=== PATIENT | female | born 1995 | race Caucasian/White ===

== ENCOUNTER 2016-12-29 09:45 | Outpatient (CLI) | payer MEDICAID | END 2016-12-29 09:46 | disposition home or self-care (01) | LOC: LAB.R 09:45 | PROVIDERS: ATTEND Physician Assistant | DX: N39.0 Urinary tract infection, site not specified (principal) | CPT/HCPCS: 87086 ==

== ENCOUNTER 2017-01-27 11:49 | Outpatient (CLI) | payer MEDICAID ==
[2017-01-27 12:16] LABS: BASOPHILS # (AUTO) 0.1 10^3/uL (0.0-0.1); BASOPHILS % (AUTO) 0.7 %; EOSINOPHILS % (AUTO) 0.4 %; HCT - HEMATOCRIT 40.2 % (37.0-47.0); HGB - HEMOGLOBIN 13.7 g/dL (12.0-16.0); LYMPHOCYTES # (AUTO) 1.8 10^3/uL (1.5-3.5); LYMPHOCYTES % (AUTO) 19.5 %; MEAN CORPUSCULAR HEMOGLOBIN 29.8 pg (27.0-31.0); MEAN CORPUSCULAR HGB CONC 34.1 g/dL (32.0-36.0); MEAN CORPUSCULAR VOLUME 87.5 fL (81.0-99.0); MEAN PLATELET VOLUME 8.5 fL (7.9-10.8); MONOCYTES # (AUTO) 0.6 10^3/uL (0.0-1.0); MONOCYTES % (AUTO) 6.8 %; NEUTROPHILS # (AUTO) 6.5 10^3/uL (1.5-6.6); NEUTROPHILS % (AUTO) 72.6 %; RED BLOOD COUNT 4.59 10^6/uL (4.20-5.40); RED CELL DISTRIBUTION WIDTH 14.2 % (12.0-15.0)
[2017-01-27 12:18] LABS: BILIRUBIN,URINE NEGATIVE (NEGATIVE)
[2017-01-27 12:27] LABS: WBC,URINE 0-3 /HPF (0-5)
[2017-01-31 18:12] LABS: TEST RESULT REPORT (())
== END 2017-01-27 11:50 | disposition home or self-care (01) ==
LOC: LAB 11:49
PROVIDERS: ATTEND Registered Nurse
DX: Z36 Encounter for antenatal screening of mother (principal)
CPT/HCPCS: 36415; 81001; 81599; 85025; 86762; 86780; 86850; 86900; 86901; 87340; 87389

== ENCOUNTER → 2017-02-24 | Outpatient (CLI) | payer MEDICAID | LOC: LAB.R 08:00 | PROVIDERS: ATTEND Registered Nurse | DX: A56.00 Chlamydial infection of lower genitourinary tract, unspecified (principal) | CPT/HCPCS: 87491; 87591 ==

== ENCOUNTER 2017-04-07 12:33 | Outpatient (CLI) | payer MEDICAID ==
--- NOTE | 2017-04-10 15:29 | DEXA Report ---
OB ULTRASOUND: 04/07/2017 CLINICAL INDICATION: anatomy. TECHNIQUE: Real-time scanning was performed with treasury representative static images obtained. LAST MENSTRUAL PERIOD 10/26/2016 Clinical Age 23 weeks 2 days US Age 20 weeks 6 days EFW Hadlock 392 EFW% Hadlock less than 3% Heart Rate 146 bpm EDC 08/02/2017 US EDC 08/19/2017 BPD Hadlock 20 weeks 4 days; Mean mm 48 HC Hadlock 20 weeks 6 days; Mean mm 185 AC Hadlock 21 weeks 2 days; Mean mm 162 FL Hadlock 20 weeks 5 days; Mean mm 34 Presentation moving Placental Location anterior Cervical Length -- Amniotic Fluid 15.4 cm FINDINGS: There is a single viable intrauterine gestation, in variable position. heart rate is 146 BPM. The placenta is anterior, without evidence of previa. Amniotic fluid volume is subjectively normal. By size, the fetus measures 20 weeks 6 days (23 weeks 2 days by LMP, 27 weeks 4 days by DAMIEN provided on order). The following anatomic structures were visualized and appear normal: The intracranial contents, including the ventricles and posterior fossa; the lips and orbits; the spine; the heart, including 4-chamber view and outflow tracts, and diaphragm; the abdominal contents, including the stomach, the bilateral kidneys, and urinary bladder, as well as a normal 3- vessel cord insertion; 4 limbs. No free fluid or adnexal lesion is appreciated. IMPRESSION: SINGLE VIABLE INTRAUTERINE GESTATION, MEASURING SIGNIFICANTLY SMALLER THAN EXPECTED BY LMP DATING OR DATING PROVIDED ON THE ORDER. BY SIZE, THE FETUS MEASURES 20 WEEKS 6 DAYS, WITH AN ESTIMATED DUE DATE OF 08/19/2017. NORMAL ANATOMIC SURVEY. MTDD
== END 2017-04-07 12:34 | disposition home or self-care (01) ==
LOC: DI 12:33
PROVIDERS: ATTEND Registered Nurse
DX: Z34.82 Encounter for supervision of other normal pregnancy, second trimester (principal)
CPT/HCPCS: 76811

== ENCOUNTER 2017-05-19 12:18 | Outpatient (CLI) | payer MEDICAID ==
[2017-05-19 13:45] LABS: HGB - HEMOGLOBIN 11.4 g/dL (12.0-16.0); MEAN CORPUSCULAR HGB CONC 35.3 g/dL (32.0-36.0); MEAN CORPUSCULAR VOLUME 90.9 fL (81.0-99.0); MEAN PLATELET VOLUME 8.3 fL (7.9-10.8); RED BLOOD COUNT 3.54 10^6/uL (4.20-5.40); RED CELL DISTRIBUTION WIDTH 12.8 % (12.0-15.0); WHITE BLOOD COUNT 8.8 x10^3/uL (4.8-10.8)
== END 2017-05-19 12:19 | disposition home or self-care (01) ==
LOC: LAB 12:18
PROVIDERS: ATTEND Registered Nurse
DX: Z34.82 Encounter for supervision of other normal pregnancy, second trimester (principal)
CPT/HCPCS: 36415; 82950; 86850

== ENCOUNTER 2017-05-26 08:05 | Outpatient (CLI) | payer MEDICAID | END 2017-05-26 08:06 | disposition home or self-care (01) | LOC: LAB 08:05 | PROVIDERS: ATTEND Nurse Practitioner Obstetrics & Gynecology | DX: R73.02 Impaired glucose tolerance (oral) (principal) | CPT/HCPCS: 36415; 82951 ==

== ENCOUNTER 2017-07-19 08:00 | Outpatient (CLI) | payer MEDICAID | END 2017-07-19 08:01 | disposition home or self-care (01) | LOC: LAB.R 08:00 | PROVIDERS: ATTEND Nurse Practitioner Obstetrics & Gynecology | DX: Z36.85 Encounter for antenatal screening for Streptococcus B (principal); Z11.3 Encounter for screening for infections with a predominantly sexual mode of transmission | CPT/HCPCS: 87081; 87491; 87591 ==

== ENCOUNTER 2017-08-11 11:38 | Outpatient (CLI) | payer MEDICAID ==
[2017-08-11 11:55] VITALS: BP 128/88
== END 2017-08-11 16:01 | disposition home or self-care (01) ==
LOC: WFO 11:38 → FBP 11:40 → WFO 16:01
PROVIDERS: ATTEND Nurse Practitioner Obstetrics & Gynecology
DX: O47.1 False labor at or after 37 completed weeks of gestation (principal); O36.8130 Decreased fetal movements, third trimester, not applicable or unspecified; Z3A.38 38 weeks gestation of pregnancy
CPT/HCPCS: 99212; 99213

== ENCOUNTER 2017-08-11 20:33 | Outpatient (CLI) | payer MEDICAID ==
[2017-08-11 21:02] VITALS: BP 125/85
== END 2017-08-11 21:30 | disposition home or self-care (01) ==
LOC: WFO 20:33 → FBP 20:34 → WFO 21:30
PROVIDERS: ATTEND Nurse Practitioner Obstetrics & Gynecology
DX: O36.8130 Decreased fetal movements, third trimester, not applicable or unspecified (principal); Z3A.38 38 weeks gestation of pregnancy
CPT/HCPCS: 99212

== ENCOUNTER 2017-08-15 20:51 | Outpatient (CLI) | payer MEDICAID ==
[2017-08-15 21:06] VITALS: BP 127/80
== END 2017-08-15 22:51 | disposition home or self-care (01) ==
LOC: WFO 20:51 → FBP 20:52 → WFO 22:51
PROVIDERS: ATTEND Nurse Practitioner Obstetrics & Gynecology
DX: O47.1 False labor at or after 37 completed weeks of gestation (principal); Z3A.39 39 weeks gestation of pregnancy
CPT/HCPCS: 99213

== ENCOUNTER 2017-08-18 13:19 | Inpatient (IN) | payer MEDICAID ==
[2017-08-18] MEDS ORDERED: SODIUM CHLORIDE FLUSH 0.9% 10 ML SYRINGE IVP PRN ×2 (13:58→15:11)
[2017-08-18] MEDS ORDERED: ceFAZolin 2 GM/50 ML 2 GM/50 ML BAG IV SCH (13:58)
[2017-08-18] MEDS ORDERED: LACTATED RINGERS 1,000 ML IV SCH ×2 (14:00→16:00)
[2017-08-18] MEDS ORDERED: CITRIC ACID/SODIUM CITRATE 15 ML UDC PO ONE (14:02)
[2017-08-18] MEDS ORDERED: LACTATED RINGERS 2,000 ML IV ONE (14:03)
[2017-08-18] MEDS ORDERED: SODIUM CHLORIDE FLUSH 0.9% 10 ML SYRINGE ONE (14:03)
[2017-08-18] MEDS ORDERED: LACTATED RINGERS 1,000 ML IV ONE ×2 (14:10→14:45)
[2017-08-18 14:20] LABS: BASOPHILS % (AUTO) 0.4 %; EOSINOPHILS % (AUTO) 0.3 %; HGB - HEMOGLOBIN 11.5 g/dL (12.0-16.0); LYMPHOCYTES # (AUTO) 1.9 10^3/uL (1.5-3.5); LYMPHOCYTES % (AUTO) 25.2 %; MEAN CORPUSCULAR HEMOGLOBIN 28.5 pg (27.0-31.0); MEAN CORPUSCULAR HGB CONC 33.7 g/dL (32.0-36.0); MEAN CORPUSCULAR VOLUME 84.4 fL (81.0-99.0); MEAN PLATELET VOLUME 10.4 fL (7.9-10.8); MONOCYTES # (AUTO) 0.5 10^3/uL (0.0-1.0); MONOCYTES % (AUTO) 7.2 %; NEUTROPHILS % (AUTO) 66.9 %; PLT - PLATELET COUNT 182 10^3/uL (130-450); RED BLOOD COUNT 4.03 10^6/uL (4.20-5.40); RED CELL DISTRIBUTION WIDTH 14.4 % (12.0-15.0); WHITE BLOOD COUNT 7.5 x10^3/uL (4.8-10.8)
[2017-08-18 14:30] LABS: RUPTURE OF MEMBRANES PLUS NEGATIVE (NEGATIVE)
[2017-08-18] MEDS ORDERED: KETOROLAC 30 MG/ML VIAL IVP ONE (14:40)
[2017-08-18] MEDS ORDERED: ceFAZolin 1 GM VIAL IV ONE (14:40)
[2017-08-18] MEDS ORDERED: ROCURONIUM 50 MG/5 ML VIAL IVP ONE (14:40)
[2017-08-18] MEDS ORDERED: PROPOFOL 200 MG/20 ML VIAL IVP ONE (14:40)
[2017-08-18] MEDS ORDERED: fentaNYL 250 MCG/5 ML VIAL IVP ONE (14:40)
[2017-08-18] MEDS ORDERED: ONDANSETRON 4 MG/2 ML VIAL IVP ONE (14:40)
[2017-08-18] MEDS ORDERED: OXYTOCIN 10 UNIT/ML VIAL IV ONE (14:40)
[2017-08-18] MEDS ORDERED: ACETAMINOPHEN 1,000 MG/100 ML 100 ML IV ONE (14:40)
[2017-08-18] MEDS ORDERED: SUCCINYLCHOLINE 200 MG/10 ML VIAL IVP ONE (14:40)
[2017-08-18] MEDS ORDERED: BUPIVACAINE 0.5%-EPI 1:200000 PF 30 ML VIAL SUBQ ONE (14:45)
[2017-08-18] MEDS ORDERED: HYDROCORTISONE/PRAMOXINE 10 GM PR PRN (15:11)
[2017-08-18] MEDS ORDERED: ZOLPIDEM 5 MG TABLET PO PRN (15:11)
[2017-08-18] MEDS ORDERED: WITCH HAZEL/GLYCERIN 1 EACH MED..PAD TOP PRN (15:11)
[2017-08-18] MEDS ORDERED: diphenhydrAMINE 25 MG CAPSULE PO PRN (15:11)
[2017-08-18] MEDS ORDERED: OXYTOCIN/SODIUM CHLORIDE 250 ML IV ONE (15:11)
[2017-08-18] MEDS ORDERED: ONDANSETRON 4 MG/2 ML VIAL IVP PRN (15:11)
--- NOTE | 2017-08-18 15:23 | OPERATIVE REPORT ---
Operative Report - General Admit Date: 08/18/17 Pre-Op Diagnosis: bradycardia; 39 week gestation Procedure Performed: Emergent lower segment transverse section Post Op Diagnosis: Same as above - Procedure Note Primary Surgeon: Cyrus Herbert MD, FACOG Secondary Surgeon: Maggie Dorantes, certified nurse machine hamper maker Anesthesia Provider: Chaparro Garza certified nurse general repair mechanic Anesthesia Technique: General ET tube Pathology: Placenta IV Fluids (mL): 1,000 Estimated Blood Loss (mL): 500 Urine Output (mL): 250 Drain/Tube Type: Other (Calderon catheter) Complications: None - Other Other Information/Narrative: Incision time 1419 delivery time 1421. Living female weight 8 pounds 7.1 ounces (3831 g) scoring Apgars of 9/9. Arterial cord pH 7.308 base excess - 3.8 venous cord pH 7.315 base excess -1.9.
[2017-08-18] MEDS ORDERED: SODIUM CHLORIDE FLUSH 0.9% 10 ML SYRINGE IVP SCH ×2 (17:00)
--- NOTE | 2017-08-18 17:28 | HISTORY & PHYSICAL EXAMINATION ---
Admit History - Instructions [place]/Slash: -Left hand click circles element as positive or present. -Right hand click slashes element as negative or not present. - Visit Reason Visit Reason: Membranes rupture - Care: positive: [facility] Risk/History: positive: None Complications This : positive: None Smoking Status: Never smoker - Mother's Labs Mother's Blood Type: positive: O Mother's RH: positive: Positive GBS: positive: Group B Step Negative Rubella Status: positive: Equivocal - Other Maternal History Other Maternal History: HPI: This 21yo at 39.5wks gestation by 10.5 wk U/S who presents for rule out rupture of membranes. She states phoned labor and delivery and states she noticed a gush of fluid that soaked her underwear while she was sitting down 2 days ago. She reports continued light leakage of fluid since this episode. Reports positive movement. Nitrizine negative, ROM+ collected. Patient was placed on monitor by labor and delivery mgr. She then immediately notified myself in the office of abnormal heart rate. heart rate tracing visualized on the office. Baseline appeared to be 150bpm with decrease to 50bpm for 30-60 seconds repeatedly. I immediately notified Dr. Herbert, attending physician of the abnormal hear tones. Dr. Herbert and I were in agreement that the distress was a significant possibility. Risks vs benefits of continued monitoring vs immediate delivery were reviewed with the patient and the decision was made to proceed to delivery. Care was then handed off to Dr. Herbert. Dating Criteria: 1.) LMP 11/25/2016 2.) First ultrasound 01/27/2017 @ 10.5wks - radiates from LMP 3.) First exam 01/27/2017 @ 10.5 weeks agrees with initial ultrasound 4.) Serial exams @ 14-39 weeks agree with initial ultrasound OB History: G1: Current. +Chlamydia, MONTY neg. 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 Last pap 01/2017 WNL. No significant past medical or surgical hx Family Hx: Asthma -father Meds: PNV, Zoloft Allergies: NKDA labs: Blood type O, Rh pos, Antibody negative Hgb 13.7, Hct 40.2, PLT 182 Rubella equivocal HIV: nonreactive GC neg, CT pos Hep B nonreactive FTA-ABS non-reactive Tdap 06/07/2017 28 week labs: Hgb 11.4, antibody neg, 1 hour GTT 166 3 hour GTT 88, 176, 159, 133 GBS neg Ultrasounds: 04/14/2017 FAS WNL, anterior placenta, no previa, CYNDI WNL Meds/Allgy - Allergies Allergies/Adverse Reactions: Allergies Allergy/AdvReac Type Severity Reaction Status Date / Time No Known Drug Allergies Allergy Verified 08/18/17 15:26 Physical - Abdominal Exam Vital Signs: Temp Pulse Resp BP Pulse Ox 37 C 70 18 122/90 H 98 08/18/17 16:09 08/18/17 17:01 08/18/17 17:01 08/18/17 17:01 08/18/17 17:01
[2017-08-18] MEDS: DOCUSATE SODIUM 100 MG CAPSULE PO SCH (20:41)
[2017-08-18] MEDS: KETOROLAC 30 MG/ML VIAL IV SCH (20:41)
[2017-08-19] MEDS: KETOROLAC 30 MG/ML VIAL IV SCH ×3 (02:32→13:41)
[2017-08-19] MEDS: oxyCOD/ACETAMIN 5 MG/325 MG TABLET PO PRN ×5 (02:32→21:34)
--- NOTE | 2017-08-19 08:09 | PROVIDER PROGRESS NOTE ---
Subjective - General Admit Date: 08/18/17 Procedure Date: 08/18/17 Post Op Days: 1 Procedure Performed: Emergent primary lower segment transverse section - Review of Systems Wound/Incisions: positive: Healing well (No evidence of seroma or infection, wound sealed with Dermabond) Drain Type: Calderon discontinued General: positive: No symptoms, Other (Pain well controlled) HEENT: positive: No symptoms Pulmonary: positive: No symptoms Cardiovascular: positive: No symptoms Gastrointestinal: positive: No symptoms Genitourinary: positive: No symptoms, Other (Scant non-foul lochia rubra) Musculoskeletal: positive: No symptoms Skin: positive: No symptoms Neurological: Psychiatric: positive: No symptoms (Patient in good spirits smiling; father present and tending to ) Objective - Patient Data Vital Signs: Vital Signs x48h Temp Pulse Resp BP Pulse Ox 08/19/17 04:10 98.6 F 83 16 128/81 H 96 Weight: Weight 08/17/17 08/18/17 08/19/17 23:59 23:59 23:59 Weight (kg) 73.93 kg Intake & Output: Intake and Output Totals x24h 08/17/17 08/18/17 08/19/17 23:59 23:59 23:59 Intake Total 960 400 Output Total 1170 500 Balance -210 -100 - Lab Results Lab Results: 08/18/17 14:08 Other Lab Results: Lab Results x24hrs 08/18/17 08/18/17 Range/Units 14:08 13:38 WBC 7.5 (4.8-10.8) x10^3/uL RBC 4.03 L (4.20-5.40) 10^6/uL Hgb 11.5 L (12.0-16.0) g/dL Hct 34.0 L (37.0-47.0) % MCV 84.4 (81.0-99.0) fL MCH 28.5 (27.0-31.0) pg MCHC 33.7 (32.0-36.0) g/dL RDW 14.4 (12.0-15.0) % Plt Count 182 (130-450) 10^3/uL MPV 10.4 (7.9-10.8) fL Neut # 5.0 (1.5-6.6) 10^3/uL Lymph # 1.9 (1.5-3.5) 10^3/uL Davie # 0.5 (0.0-1.0) 10^3/uL Eos # 0.0 (0.0-0.7) 10^3/uL Baso # 0.0 (0.0-0.1) 10^3/uL Absolute Nucleated RBC 0.00 x10^3/uL Nucleated RBC % 0.0 /100WBC Membranes Rupture NEGATIVE (NEGATIVE) - Current Medications Current Medications: Current Medications Generic Name Dose Route Start Last Admin Trade Name Freq PRN Reason Stop Dose Admin Docusate Sodium 100 mg 08/18/17 21:00 08/18/17 20:41 Colace 100mg Capsule PO 100 mg BID WEI Administration Ketorolac Tromethamine 30 mg 08/18/17 16:00 08/19/17 02:32 Toradol Inj IV 08/19/17 10:01 30 mg Q6H WEI Administration Oxycodone/Acetaminophen 1 tab 08/18/17 15:11 08/19/17 02:32 Percocet 5 Mg/325 Mg PO 1 tab Q4HR PRN Administration PAIN Physical Exam - Physical Exam General: positive: No acute distress HEENT: positive: EOMI, Moist mucous membranes Neck: positive: Supple w/out meningeal sx Cardiac: positive: Regular Rate, Murmur Present (Flow murmur typical of ) Resipratory: positive: Clear to ausultation cecelia, Other (Patient demonstrated the use of incentive spirometry) Abdomen: positive: Normal Bowel sounds, Tender to palpation (Lower quadrants and incisional area appropriately tender immediately post surgery), Other ( Wound is dry intact without any redness or seroma.) Female : positive: Enlarged uterus (17 week size firm nontender) Extremities: positive: Normal ROM, No pedal edema, Non tender Skin: positive: Warm and dry Neurologic: positive: Alert and Oriented X 3, Normal motor/no weakness, Normal Sensation, Normal Speech Assessment/Plan - Assessment/Plan Assessment: Patient is recovering from section as expected. She is hemodynamically stable, advancing diet, breast-feeding without difficulty and regaining urinary function. No signs of concern. Await morning CBC results Plan: Plan: * DC Calderon catheter, * Hep-Lock IV fluids, * encourage ambulation, * encourage shower, * continue breast-feeding instruction
[2017-08-19] MEDS: DOCUSATE SODIUM 100 MG CAPSULE PO SCH ×2 (09:02→21:34)
[2017-08-19 09:07] LABS: BASOPHILS % (AUTO) 0.3 %; EOSINOPHILS % (AUTO) 0.1 %; HGB - HEMOGLOBIN 9.8 g/dL (12.0-16.0); LYMPHOCYTES # (AUTO) 1.3 10^3/uL (1.5-3.5); LYMPHOCYTES % (AUTO) 10.5 %; MEAN CORPUSCULAR HEMOGLOBIN 28.4 pg (27.0-31.0); MEAN CORPUSCULAR HGB CONC 33.8 g/dL (32.0-36.0); MEAN CORPUSCULAR VOLUME 83.9 fL (81.0-99.0); MEAN PLATELET VOLUME 9.4 fL (7.9-10.8); MONOCYTES % (AUTO) 7.7 %; NEUTROPHILS # (AUTO) 10.2 10^3/uL (1.5-6.6); NEUTROPHILS % (AUTO) 81.4 %; PLT - PLATELET COUNT 157 10^3/uL (130-450); RED BLOOD COUNT 3.46 10^6/uL (4.20-5.40); RED CELL DISTRIBUTION WIDTH 14.8 % (12.0-15.0); WHITE BLOOD COUNT 12.6 x10^3/uL (4.8-10.8)
[2017-08-20] MEDS: oxyCOD/ACETAMIN 5 MG/325 MG TABLET PO PRN ×3 (01:20→15:16)
--- NOTE | 2017-08-20 07:36 | PROVIDER PROGRESS NOTE ---
Subjective - General Admit Date: 08/18/17 Procedure Date: 08/18/17 Post Op Days: 2 Procedure Performed: Emergent primary lower segment transverse section - Review of Systems Wound/Incisions: positive: Healing well (No evidence of seroma or infection, wound sealed with Dermabond) Drain Type: Calderon discontinued General: positive: No symptoms, Other (Pain well controlled) HEENT: positive: No symptoms Pulmonary: positive: No symptoms Cardiovascular: positive: No symptoms Gastrointestinal: positive: No symptoms, Other (No BM; + Flatus) Genitourinary: positive: No symptoms, Other (Scant non-foul lochia rubra) Musculoskeletal: positive: No symptoms Skin: positive: No symptoms Psychiatric: positive: No symptoms (Patient in good spirits smiling; father present and tending to ) Objective - Patient Data Vital Signs: Vital Signs x48h Temp Pulse Resp BP Pulse Ox 08/20/17 03:30 98.2 F 77 16 138/90 H 96 Weight: Weight 08/18/17 08/19/17 08/20/17 23:59 23:59 23:59 Weight (kg) 73.93 kg Intake & Output: Intake and Output Totals x24h 08/18/17 08/19/17 08/20/17 23:59 23:59 23:59 Intake Total 960 1500 Output Total 1170 1600 Balance -210 -100 - Lab Results Lab Results: 08/19/17 08:59 Other Lab Results: Lab Results x24hrs 08/19/17 Range/Units 08:59 WBC 12.6 H (4.8-10.8) x10^3/uL RBC 3.46 L (4.20-5.40) 10^6/uL Hgb 9.8 L (12.0-16.0) g/dL Hct 29.0 L (37.0-47.0) % MCV 83.9 (81.0-99.0) fL MCH 28.4 (27.0-31.0) pg MCHC 33.8 (32.0-36.0) g/dL RDW 14.8 (12.0-15.0) % Plt Count 157 (130-450) 10^3/uL MPV 9.4 (7.9-10.8) fL Neut # 10.2 H (1.5-6.6) 10^3/uL Lymph # 1.3 L (1.5-3.5) 10^3/uL [place] # 1.0 (0.0-1.0) 10^3/uL Eos # 0.0 (0.0-0.7) 10^3/uL Baso # 0.0 (0.0-0.1) 10^3/uL Absolute Nucleated RBC 0.00 x10^3/uL Nucleated RBC % 0.0 /100WBC - Current Medications Current Medications: Current Medications Generic Name Dose Route Start Last Admin Trade Name Freq PRN Reason Stop Dose Admin Docusate Sodium 100 mg 08/18/17 21:00 08/19/17 21:34 Colace 100mg Capsule PO 100 mg BID WEI Administration Oxycodone/Acetaminophen 1 tab 08/18/17 15:11 08/20/17 01:20 Percocet 5 Mg/325 Mg PO 1 tab Q4HR PRN Administration PAIN Physical Exam - Physical Exam General: positive: No acute distress HEENT: positive: Moist mucous membranes Neck: positive: Supple w/out meningeal sx Cardiac: positive: Regular Rate, Regular Rhythm Resipratory: positive: Clear to ausultation cecelia Abdomen: positive: Normal Bowel sounds Female : positive: Enlarged uterus (17 wk; Nontender; Firm; Scant Lochia Nonfoul) Extremities: positive: No pedal edema Skin: positive: Warm and dry Neurologic: positive: Alert and Oriented X 3 Assess/Plan - Additional Planning Condition/Complexity: Stable My Orders: My Active Orders 08/20/17 08:00 Ibuprofen [Motrin] 600 mg PO Q6HR 08/20/17 09:00 Polyethylene Glycol 3350 [Miralax] 17 gm PO DAILY Assessment/Plan - Assessment/Plan Assessment: Doing Well Plan: PLAN * Laxative * Ibuprophen * Supportive Care
[2017-08-20] MEDS: DOCUSATE SODIUM 100 MG CAPSULE PO SCH ×2 (08:31→23:15)
[2017-08-20] MEDS: IBUPROFEN 600 MG TABLET PO SCH ×3 (08:31→23:15)
[2017-08-20] MEDS ORDERED: MEASLES,MUMPS & RUBELLA VACC 0.5 ML VIAL SUBQ ONE (08:56)
[2017-08-20] MEDS ORDERED: POLYETHYLENE GLYCOL 3350 17 GM PACKET PO SCH (09:00)
[2017-08-21] MEDS: IBUPROFEN 600 MG TABLET PO SCH (05:10)
[2017-08-21 07:54] VITALS: BP 137/81
--- NOTE | 2017-08-21 08:05 | Discharge Plan ---
Discharge Plan Disposition: 01 Home, Self Care Diet: Regular (Recommend high protein high iron diet containing red meats, spinach and sufficient fiber) Activity Restrictions: Activity as Tolerated Shower Restrictions: No Driving Restrictions: No Weight Bearing: Full Weight No Smoking: If you smoke, Please STOP! Call for help. Follow-up with: Cyrus Herbert MD [Provider Admit Priv/Credential] -
--- NOTE | 2017-08-21 08:39 | DISCHARGE SUMMARY ---
Physician: Cyrus Herbert MD DATE OF ADMISSION: 08/18/2017 DATE OF DISCHARGE: 08/21/2017 DIAGNOSES 1. A 39-week 5-day gestation. 2. Bouts of bradycardia to the 50s. 3. Prior history of irregular heart tones evaluated by Maternal Medicine, reported resolved. Patient is a 21-year-old primigravida at 39 weeks 5 days, dated by a 10-week ultrasound, who presented at Labor and Delivery to rule out ruptured membranes. During initial evaluation, heart tones were in the 50s intermittently, sometimes for 60 seconds or longer, with a baseline of 150. After initial evaluation, there was no evidence of abruption, but the concerning bouts of bradycardia were confirmed (reference Maggie MACKW H and P). I discussed the situation with the patient explaining the possibility of compromise either due to cord factors, placental factors or even prolonged and persistent heart block. It was recommended that section be accomplished. The risks were reviewed inclusive of blood loss, transfusion, infection, damage to maternal organs, and the need for repetitive sections. After a brief discussion, patient agreed with a section, and we brought her to the OR emergently. HOSPITAL COURSE: Patient was brought to the OR and placed on the table while preparations were made in a coordinated fashion. Anesthesia arrived shortly thereafter. She then underwent general anesthesia with intubation uneventfully. Incision time was 1419 with baby out at 1421. section produced a living female infant weighing 8 pounds 7.1 ounces ( 3831 grams) and scoring Apgars of 9/9. Arterial cord pH was 7.308 with a base excess of -3.8. Cord pH was 7.31 with a base excess of 1.9. Total blood loss was 500 or less. Patient went to the recovery room in stable condition. Post recovery, patient rapidly advanced to full diet and activity. She breastfed without difficulty. Admission hemoglobin was 11.5 and postop hemoglobin was 9.8. Patient required supportive care until postop day #3, at which time she was ready for discharge. Wound instructions and warning and call-back signs were reviewed. DISCHARGE MEDICATIONS 1. Motrin 600 q.6 hours scheduled for 1 week and then p.r.n. 2. Percocet 5/325 one tablet q.4 hours p.r.n. breakthrough pain. 3. Colace 250 b.i.d. for 30 days. 4. vitamins and iron. 5. Ferrous sulfate 325 p.o. b.i.d. FOLLOWUP: Patient will have a customary wound check in 2 weeks. At that time, she will also be evaluated by midwifery and resume care at the clinic. TD: 08/21/2017 08:38 DANYEL
[2017-08-21] MEDS: oxyCOD/ACETAMIN 5 MG/325 MG TABLET PO PRN (09:36)
[2017-08-21] MEDS: DOCUSATE SODIUM 100 MG CAPSULE PO SCH (09:36)
--- NOTE | 2017-08-21 09:57 | OPERATIVE REPORT ---
DATE OF SERVICE: 08/18/2017 Physician: Cyrus Herbert MD PREOPERATIVE DIAGNOSIS: bradycardia; 39-week gestation. POSTOPERATIVE DIAGNOSIS: bradycardia; 39-week gestation. PROCEDURE: Emergent lower segment transverse section. SURGEON: Cyrus Herbert MD, FACOG, FICS DSP ENGINEER: Maggie Dorantes, Certified Nurse Feather Shaper. ETCHER ELECTROLYTIC: Yoselin Garza, Certified Nurse Dispensing Audiologist. ANESTHESIA: General, ET tube placed. COMPLICATIONS: None. ESTIMATED BLOOD LOSS: 500. CRYSTALLOIDS: Approximately 1000. URINE OUTPUT: 250, clear. Calderon in place. FINDINGS: At 1418 hours, the section was begun. A living male infant was delivered at 1421 hours. The weighed 8 pounds 7.1 ounces and scored Apgars of 9/ 9.. Arterial cord pH equals 7.308 with base excess -3.8. There was no obvious trauma or congenital anomalies. There was clear amniotic fluid without any foul smell or meconium. Placenta was extracted intact with 3-vessel cord. There was no significant cord entanglement. There was no myometrial pathology, and the ovaries appeared to be normal. Tubes appeared to be open and fluffy. BACKGROUND: Maggie Dorantes was notified in the office of abnormal heart tracing by the OB nurse, Maria R. The tracing was brought up on the network, and there were repetitive decelerations into the 50s. There had been previous bouts of bradycardia earlier in , and patient had MFM consultation. The heart arrhythmia was spontaneously resolved. The mother had no history of cardiovascular disease. Due to the repetitive deep decelerations, some prolonged to 2 minutes, we reacted immediately. The OR was informed of possible section. Once at bedside , the tracing was confirmed and the situation explained to the patient. It was impossible to determine in the prerequisite short time limit if this was recurrent bouts of heart block, bradycardia due to a placental insufficiency, or cord accident. The multiple bouts of bradycardia raised the possibility of a compromising heart block, and decision was made to recommend section. The situation was explained to the mother and father, after which she consented. Consent form was signed. Patient was begun on IV fluids. Calderon was placed and Bicitra given. The charge nurse came to the OB suite to assist. I called the OR desk to ensure that Anesthesia had been notified and knew that this was an emergency. PROCEDURE Patient was brought to the OR #1 that had been set up by the OR crew. She was placed on the operating table. She was prepped and draped in the customary sterile fashion. Anesthesia arrived, was quickly briefed to the situation, and prepared for general anesthesia. Patient was uneventfully induced and intubated. The procedure began immediately, and the abdominal wall was uneventfully opened with a Pfannenstiel incision. A curvilinear lower segment hysterotomy was cut with a scalpel. There was clear fluid on entry into the amniotic cavity. The foot drill operator secured the vertex with his right hand and guided it through the hysterotomy wound. A Kiwi vacuum was then placed and pumped to the green zone. The head was then guided through the laparotomy wound. The shoulders were snug but delivered without difficulty or extension. The cord was doubly clamped, transected. The was handed to the waiting nursing team. Cord blood and cord gas samples were sent. Uterus was exteriorized. Using massage, the placenta was removed intact. All membranes were removed from the interior. The hysterotomy was closed in 2 layers, first an interlocking layer of 0 Vicryl, followed by an imbricating layer of 0 Vicryl. Abdominal cavity was lavaged with warm normal saline. We inspected all wound sites, and they were secure. The uterus was placed back into the abdominal cavity. Abdominal peritoneum was closed with a running stitch of 2-0 Vicryl. Rectus muscles were tacked back together in the midline with interrupted sutures of 0 Vicryl. Fascia was closed with a running stitch of 0 Vicryl. Subcutaneous space was closed with a running stitch of 2-0 Vicryl. Skin was closed with a running subcuticular stitch of 4-0 Monocryl and dressed with Dermabond. At the end of the case, all sponge, needle, and instrument counts were confirmed as correct. Patient was uneventfully awakened from general anesthesia and taken to the recovery room in good condition. TD: 08/18/2017 20:57 DANYEL
--- NOTE | 2017-08-21 14:03 | Labor Flowsheet ---
Labor Flowsheet Datetime Report Generated by CPN: 08/21/2017 14:02 Datetime: 08/20/2017 09:28 VITAL SIGNS NBP Sys/Enma/Mean (mmHg): 107 : 70 : 79 Pulse: 88 SpO2 (%): 99 COMMUNICATION LaborFlag: OB Triage
== END 2017-08-21 09:45 | disposition home or self-care (01) | DRG 766 ==
LOC: WFO 13:19 → FBP 13:20 → WFO 13:57 → FBP 13:58
PROVIDERS: ADMIT Nurse Practitioner Obstetrics & Gynecology; ATTEND Obstetrics & Gynecology
PROC: 10D00Z1 Extraction of Products of Conception, Low, Open Approach (ICD-10-PCS; principal; 2017-08-18 14:15)
DX: O76 Abnormality in fetal heart rate and rhythm complicating labor and delivery (principal); Z3A.39 39 weeks gestation of pregnancy; Z37.0 Single live birth; Z86.19 Personal history of other infectious and parasitic diseases
CPT/HCPCS: 36415; 82570; 82803; 84112; 84156; 85025; 99213

== ENCOUNTER 2018-07-21 23:12 | Emergency (ER) | payer MEDICAID, OTHER ==
[2018-07-22] MEDS ORDERED: SULFAM/TRIM 800/160 Prepack 2 PO ONE (01:32)
--- NOTE | 2018-07-22 01:35 | ED Physician Documentation ---
PD HPI SKIN - Stated complaint Stated Complaint: RT LEG RASH - Chief complaint Chief Complaint: Wound - History obtained from History obtained from: Patient, Family - History of Present Illness Timing - onset: Yesterday Timing - duration: Days (2) Timing - details: Gradual onset, Still present Location: LLE Quality / character: Painful, Discolored, Raised, Vesicular, Swelling. No: Draining Associated symptoms: No: Fever, Myalgias Similar symptoms before: Has not had sx before Recently seen: Not recently seen - Additional information Additional information: 22-year-old female has developed a small blister on the inside of her left thigh and this is now had some erythema that has spread overnight. Review of Systems Constitutional: denies: Fever, Chills, Myalgias Respiratory: denies: Cough GI: denies: Vomiting Skin: reports: Bite / sting Musculoskeletal: reports: Extremity pain, Extremity swelling, Pain with weight bearing Neurologic: denies: Generalized weakness, Focal weakness, Numbness PD PAST MEDICAL HISTORY - Past Medical History Past Medical History: No - Past Surgical History Past Surgical History: Yes /ECMO SPECIALIST: section - Present Medications Home Medications: Ambulatory Orders Medication Instructions Recorded Confirmed Sulfamethoxazole/Trimethoprim 1 each PO BID #14 tablet 07/22/18 [Sulfamethoxazole-Tmp Ds Tablet] - Allergies Allergies/Adverse Reactions: Allergies Allergy/AdvReac Type Severity Reaction Status Date / Time No Known Drug Allergies Allergy Verified 07/21/18 23:20 - Social History Does the pt smoke?: No Smoking Status: Never smoker Does the pt drink ETOH?: No Does the pt have substance abuse?: No - Immunizations Immunizations are current?: Yes - POLST Patient has POLST: No PD ED PE NORMAL - Vitals Vital signs reviewed: Yes (normal ) - General General: Alert and oriented X 3, No acute distress, Well developed/nourished - HEENT HEENT: Atraumatic, PERRL, EOMI - Respiratory Respiratory: No respiratory distress - Derm Derm: Normal color, Warm and dry, No rash - Extremities Extremities: No deformity, No edema, Other (There is a 1cm round blister without fluctuance on the medial aspect of the left mid thigh. There is surrounding erythema about 5cm in diameter. The area is tender and firm but not flucuant. ) - Neuro Neuro: Alert and oriented X 3, sportspersons 2-12 intact, No motor deficit, No sensory deficit, Normal speech Eye Opening: Spontaneous Motor: Obeys Commands Verbal: Oriented GCS Score: 15 - Psych Psych: Normal mood, Normal affect Results - Vitals Vitals: Vital Signs - 24 hr 07/21/18 23:19 Temperature 36.4 C L Heart Rate 77 Respiratory 16 Rate Blood Pressure 130/79 O2 Saturation 100 Oxygen O2 Source Room air PD MEDICAL DECISION MAKING - ED course Complexity details: considered differential, d/w patient, d/w family ED course: 22-year-old female with a developing staph abscess with surrounding erythema does not have fluctuance tonight and I discussed with the patient the ripening of an abscess and reasons to return to the emergency department. She is started on Septra. Departure - Departure Disposition: 01 Home, Self Care Clinical Impression: Abscess of left thigh Condition: Stable Instructions: ED Staph Infec Abx Tx Only Follow-Up: your, doctor [Other] Prescriptions: Sulfamethoxazole/Trimethoprim [Sulfamethoxazole-Tmp Ds Tablet] 1 each PO BID #14 tablet
[2018-07-22 02:43] VITALS: BP 125/68
== END 2018-07-22 01:50 | disposition home or self-care (01) ==
LOC: ED 23:12
DX: L02.416 Cutaneous abscess of left lower limb (principal)
CPT/HCPCS: 99283

== ENCOUNTER 2020-03-23 10:57 | Outpatient (CLI) | payer SELFPAY | END 2020-03-23 23:59 | disposition home or self-care (01) | LOC: LAB.WCP 10:57 | PROVIDERS: ATTEND Family Medicine | DX: N91.2 Amenorrhea, unspecified (principal) | CPT/HCPCS: 36415; 84702 ==